=== PATIENT | male | born 1980 | race Caucasian/White ===

== ENCOUNTER 2017-02-28 12:03 | Emergency (ER) | payer MEDICAID ==
[~2017-02-28] VITALS: Ht 170.2 cm; Wt 89.4 kg
[2017-02-28 13:07] VITALS: BP 134/83
--- NOTE | 2017-02-28 13:21 | NUR ---
Patient to bed 11.
--- NOTE | 2017-02-28 13:28 | NUR ---
PATIENT PRESENTS TO ED WITH B/O LT BUTTOCK PAIN 7/10 WORSE FOR THE LAST WEEK WITH ERYTHEMA; CHRONIC X 2 YEARS;DENIES ANY DISCHARGES COMING OUT;HX OF ASTHMA RX OF ALBUTEROL .DENIES N/V/D; SKIN IS PINK/WARM/DRY; AAOX4 WITH EVEN AND STEADY GAIT; LUNGS CLEAR BL; HR EVEN AND REGULAR; PT DENIES ANY FEVER, CP, SOB, OR COUGH AT THIS TIME; PATIENT STATES PAIN OF 7/10 AT THIS TIME;PATIENT POSITIONED FOR COMFORT; HOB ELEVATED; BEDRAILS UP X2; BED DOWN. ER MD MADE AWARE OF PT STATUS.
[2017-02-28] MEDS ORDERED: HYDROcodone/APAP 7.5/325 MG 1 TAB PO ONE (14:25)
--- NOTE | 2017-02-28 14:46 | NUR ---
Patient discharged with v/s stable. Written and verbal after care instructions given and explained. Patient alert, oriented and verbalized understanding of instructions. Ambulatory with steady gait. All questions addressed prior to discharge. ID band removed. Patient advised to follow up with PMD. Rx of KEFLEX,MOTRIN AND TRAMADOL given. Patient educated on indication of medication including possible reaction and side effects. Opportunity to ask questions provided and answered.
[2017-02-28 14:47] VITALS: BP 128/65
== END 2017-02-28 14:46 | disposition home or self-care (01) ==
LOC: MED 12:03
DX: L03.317 Cellulitis of buttock (principal); R03.0 Elevated blood-pressure reading, without diagnosis of hypertension; J45.909 Unspecified asthma, uncomplicated; Z90.89 Acquired absence of other organs
CPT/HCPCS: 99283